=== PATIENT | female | born 1975 | race Caucasian/White ===

== ENCOUNTER 2020-08-18 16:21 | Observation (INO) | payer OTHER ==
[~2020-08-18] VITALS: Ht 170.2 cm; Wt 163.3 kg
[2020-08-18 16:56] LABS: HEMOGLOBIN 13.9 gm/dl (12.3-15.3); RED BLOOD COUNT 4.6 M/UL (4.00-5.10); WHITE BLOOD COUNT 10.4 K/UL (4.5-11.0)
[2020-08-18 17:22] LABS: BUN/CREATININE RATIO 17 (0-10)
[2020-08-18] MEDS ORDERED: ALBUTEROL2.5 MG/3 M INH (19:15)
[2020-08-18] MEDS ORDERED: OMNICEF 300 MG300 MG PO (19:16)
[2020-08-18] MEDS ORDERED: SYMBICORT 16010.2 GM INH (19:16)
[2020-08-18] MEDS ORDERED: CLARITIN 10MG T10 MG PO (19:17)
[2020-08-18] MEDS ORDERED: MONTELUKAST SOD10 MG PO (19:17)
[2020-08-18] MEDS ORDERED: VITAMIN D21250 MCG PO (19:18)
[2020-08-18] MEDS ORDERED: FLONASE 0.05% N16 GM (19:18)
[2020-08-19 06:57] LABS: HEMOGLOBIN 13.5 gm/dl (12.3-15.3); RED BLOOD COUNT 4.57 M/UL (4.00-5.10); WHITE BLOOD COUNT 9.3 K/UL (4.5-11.0)
[2020-08-19 07:27] LABS: BUN/CREATININE RATIO 22 (0-10)
[2020-08-19] MEDS ORDERED: PROTONIX40 MG PO (11:53)
[2020-08-19] MEDS ORDERED: CYCLOBENZAPRINE10 MG PO (11:53)
== END 2020-08-19 13:28 | disposition home or self-care (01) ==
LOC: ER1 16:21 → MED SURG 4 18:29 → CDU 18:29 → MED SURG 4 20:28
PROVIDERS: Emergency Medicine; ADMIT Internal Medicine
DX: J40 Bronchitis, not specified as acute or chronic (principal); K46.0 Unspecified abdominal hernia with obstruction, without gangrene; Z68.43 Body mass index [BMI] 50.0-59.9, adult; R07.89 Other chest pain; E11.9 Type 2 diabetes mellitus without complications; E66.9 Obesity, unspecified; Z90.49 Acquired absence of other specified parts of digestive tract; Z79.4 Long term (current) use of insulin; Z72.0 Tobacco use; Z82.49 Family history of ischemic heart disease and other diseases of the circulatory system
CPT/HCPCS: 0240U; 36415; 71045; 78452; 80053; 80061; 82550; 82553; 83036; 83690; 83735; 83874; 84484; 85025; 85379; 86140; 93005; 93017; 96374; 96375; 99285; A9502; G0378; J1650; J2270; J2405; J2785